=== PATIENT | female | born 1980 | race Hispanic/Latino ===

== ENCOUNTER 2021-12-27 19:12 | Emergency (ER) | payer OTHER ==
[~2021-12-27] VITALS: Ht 162.6 cm; Wt 86.2 kg
[2021-12-27] MEDS ORDERED: NAPROSYN500 MG PO (21:34)
== END 2021-12-27 22:06 | disposition home or self-care (01) ==
LOC: FSED 19:35
DX: M25.572 Pain in left ankle and joints of left foot (principal); S93.492A Sprain of other ligament of left ankle, initial encounter; X50.1XXA Overexertion from prolonged static or awkward postures, initial encounter; Y93.89 Activity, other specified; Y92.89 Other specified places as the place of occurrence of the external cause
CPT/HCPCS: 99283